=== PATIENT | male | born 1960 | race Caucasian/White ===

== ENCOUNTER 2018-08-16 15:35 | Outpatient (CLI) | payer OTHER, SELFPAY ==
[2018-08-16 17:54] LABS: Calculated LDL 115 mg/dL; Cholesterol 192 mg/dL (50-200); HDL Cholesterol 48 mg/dL (40-60); Triglyceride 149 mg/dL (30-150)
[2018-08-20 11:18] LABS: PSA, Screening 2.1 ng/ml (0-3.5)
== END 2018-08-16 15:55 ==
PROVIDERS: PCP Emergency Medicine; Visit Provider Emergency Medicine
DX: E66.3 Overweight (principal); Z12.5 Encounter for screening for malignant neoplasm of prostate
CPT/HCPCS: 80061; 83721; 84153

== ENCOUNTER 2019-09-13 07:38 | Outpatient (CLI) | payer OTHER, SELFPAY ==
[2019-09-14 18:07] LABS: COVID-19 RT-PCR Result NEGATIVE (Negative)
== END 2019-09-13 07:58 ==
PROVIDERS: PCP Emergency Medicine; Visit Provider Surgery
DX: Z11.59 Encounter for screening for other viral diseases (principal); Z01.818 Encounter for other preprocedural examination
CPT/HCPCS: U0003

== ENCOUNTER 2019-09-16 08:05 | Day surgery (SDC) | payer OTHER, SELFPAY ==
[2019-09-16] VITALS (8 sets, daily range): BP systolic 73–146; BP diastolic 49–107; PULSE 60–68; RESP 12–18; TEMP 36.1–36.7; O2SAT 95–98
[2019-09-16] MEDS: Gabapentin 300 MG CAP PO (08:43)
[2019-09-16] MEDS: Acetaminophen 500 MG TAB 1000 MG PO (08:43)
[2019-09-16] MEDS: Lactated Ringers 1,000 ML 100 ML IV ×2 (08:51→13:04)
[2019-09-16] MEDS: ceFAZolin 2 GM/50 ML BAG IVPB (10:59)
--- NOTE | 2019-09-16 11:10 | SKI_PTH ---
PATIENT: Joesph eSars LOC: [facility] U#:[id number] AGE/SX: 58/M ROOM: RE09/16/[address]: Tish Garcia : 1960 BED: DIS: 09/16/2019 SPEC #: [id number] RECD: 09/16/19 15:10 STATUS: NELI REQ #: [id number] RAÚL: 09/16/19 11:[address]: Tish Garcia DEPT: Surgical Specimen RECD BY: Camila Nick ENTERED: 09/16/19 15:11 SP TYPE: BAR RAMIREZ DR: Kvng Jansen DO Tissues: 1 - SKIN CYST/TAG/DEBRIDEMENT 2 - SKIN CYST/TAG/DEBRIDEMENT Procedures: GROSS AND MICRO LEVEL 3 Comments: [id number]
[2019-09-16] MEDS: Lidocaine 1% Multi-Dose 50 ML VIAL (11:28)
--- NOTE | 2019-09-16 12:37 | ROE_ITS ---
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 lg sebaceous cyst- 2 right frontal/scalp region POST-OP DIAGNOSIS: other excision chronic draining sinus/suture granuloma excision molly cyst PROCEDURE: excision chronic draining sinus/suture granuloma excision molly cyst SURGEON: Tish Porter ASSISTING SURGEON: Maddi Baron ANESTHESIA: MAC and local ESTIMATED BLOOD LOSS: 5 PATHOLOGY: other Patient was transported to: same day Findings: SURGEON: Tish Porter, DO ANESTHESIA: MAC. ESTIMATED BLOOD LOSS: Less than 5 mL. COMPLICATIONS: The patient tolerated the procedure well without complications. INDICATIONS: The pt had an umbilical hernia repaired approximately 10 years ago. Ever since then he has had a chronically open draining sinus at this number completely healed. Patient is here today for exploration and excision of this tract and for possible revision of the hernia and excision patent urachal cyst. Informed consent was obtained, explaining risks and benefits of the procedure including but not limited to bleeding, infection, pneumonia, blood clots, recurrence, chronic pain, and chronic numbness, reaction to mesh necessitating removal, complications of anesthesia and other unforetold complications. DESCRIPTION OF PROCEDURE: The patient was brought to the operating suite and placed in supine position. Anesthesia was administered per the Department of Anesthesia. Patient prepped and draped in the usual sterile fashion using DuraPrep scrub solution. IV antibiotics were administered. Pause for the cause was done. Healed incision is opened up. Electrocautery is used to provide he hemostasis. The sinus tract is traced down. The sinus tract is excised. Does and then a Prolene stitch. This is removed. The wound is then irrigated. Deep tissue was approximated with 3-0 Vicryl and skin was approximated with 4-0 Monocryl in a running subcuticular fashion. Skin glue and sterile dressings are applied. The forehead lesion is an attended to next. This is prepped and draped in usual sterile fashion using a Betadine scrub solution. Infiltrated 20 cc of quarter percent bicarb with epi. Small ellipse is made using a #15 blade and the cyst is dissected out. It is not grossly infected. It is about 2.5 x 2.5 inches. It is obviously a sebaceous cyst. The wound was then irrigated. Complex plastics closure in 2 layers is then carried out excising excess tissue to achieve a flat incision line and cosmetic repair just slightly above the hairline. I is closed with 3-0 Vicryl and 4-0 Monocryl running subcuticular fashion skin glue was applied. Patient tolerated procedures well without c omplication. He Was transferred to recovery room in stable condition The patient tolerated the procedure well without complications and was transferred to recovery room in stable condition. TISH PORTER, DO
--- NOTE | 2019-09-16 12:43 | PDOC.DSDIS_ITS ---
Discharge Plan Disposition Patient Disposition: HOME Condition: Good Discharge Details Reason For Visit: suture granuloma/ Attending Provider: Tish Garcia Primary Care Provider: Kvng Jansen Home Meds and New Rx's Prescriptions: New ibuprofen 600 mg tablet 600 mg PO Q6H PRNQty: 30 RF: 3 tramadol 50 mg tablet 50 mg PO Q6H PRNQty: 10 RF: 0 Continued sildenafil [Viagra] 100 mg tablet 100 mg PO DAILY Qty: 4 RF: 12 triamcinolone acetonide 15 GM cream 1 pietro Topical HS RF: 0 Discharge Instructions Additional Instructions: Caring for Your Incision You?ll need to help care for your incision after surgery and certain medical procedures. To close an incision, your healthcare provider used stitches (sutures), special strips of surgical tape called Steri-Strips, surgical fareed, or surgical skin glue. Follow the tips on this sheet to help stop bleeding, speed healing, and prevent infection of your incision. Pain Control Use ice! Ice keeps the swelling down and swelling is what causes pain. Never apply ice directly to the skin. Wrap it in a towel or cloth. Apply ice 20 minutes on and 20 minutes off for pain control. Use as needed. Take tylenol 325 mg by mouth with food every 4 hours as needed for pain. Or ibuprofen 600 mg by mouth with food every 6 hours as needed for pain. Do not take tylenol if you have a history of heavy drinking , hepatits C or liver problems. Do not take ibuprofen if you have a history of stomach ulcers/probl ems, bleeding problem or kidney issues. Types of incision closures ? Surgical stitches (sutures) are placed by sewing the edges of an incision together with surgical thread. Sutures are either absorbable or non-absorbable. Absorbable sutures break down in the body over time. Non-absorbable sutures need to be removed. ? Home care ? Always wash your hands before touching your incision. ? Keep the incision clean, dry, and out of water, keep the incision out of water. ? Do not to pick at the scabs. Scabs help protect the wound. ? You can take a shower in 24 hours and wash the incision with soap and water. Pat dry/don?t scrub. It?s OK to wash around the incision. But don?t spray water directly on it. ? Pat stitches dry if they get wet. Don't rub. ? Check the incision site daily for pain, redness, drainage, swelling, or separation of the incision edges. ? If there is a bandage (dressing) over the incision, change this every 24 hours as instructed by your provider. Using clean hands change the dressing as directed by your healthcare provider. Always wash your hands before changing your dressing. ? Make sure any clothing that touches the incision is loose-fitting. This will prevent rubbing. If the incision is on the head, keep your child from wearing caps or other head coverings. These may rub against the incision. ? Try to avoid from rough play, contact sports, or physical activities for two weeks. This can put you at risk of opening the incision. ? Make sure you avoid doing things that could cause dirt or sweat to get in or on the incision. As your incision heals, the skin may appear pink or red. It may also feel slightly bumpy or raised. This is called a healing ridge. Over time, the color should fade and the raised skin will become less noticeable. Care for specific closures : ? Sutures or fareed. Once you no longer need to keep these dry, clean the incision or wound daily, generally after the first 24 hours. First remove the bandage using clean hands. Then wash the area gently with soap and warm water. Use a wet cotton swab to loosen and remove any blood or crust that forms. After cleaning, put a thin layer of antibiotic ointment on. Then put on a new bandage. Follow-up care [place] or sutures generally need to be removed in 7-10 days. Be sure to return for suture or staple removal as directed. If dissolving stitches were used in your mouth, these will not need to be removed. They should fall out or dissolve on their own. If tape closures were used, remove them yourself when your healthcare provider tells you to if they have not fallen off on their own. When to seek medical care Call your healthcare provider right away if you have any of these: ? More pain, redness, swelling, bleeding, or foul-smelling discharge around the incision area ? Fever of 101?F (38.3?C) or higher, or as directed by your child's healthcare provider ? Shaking chills ? Vomiting or nausea that doesn?t go away ? Numbness, coldness, or tingling around the incision area, or changes in skin color ? Opening of the sutures or wound Stitches or fareed come apart or fall out or surgical tape falls off before 7 days, or as directed by your healthcare provider [facility] on Monday to make appt darline/ Dr. Garcia in 7-10 days. [phone] Activity:: no lifting over 5#'s or strenuous activity x 1week Remove Dressings/Wound Care:: 24 hours Shower/Bathe:: 24 hours Diet:: Small light meals x24 hours Discharge Orders Discharge Orders: Discharge Order (Routine); Ordered 09/16/19 Ordered By: Tish Garcia DS: Diagnosis Discharge Diagnosis (1) Sebaceous cyst: Status: Acute (2) Suture granuloma: Status: Acute
[2019-09-16] MEDS: Bacitracin 30 GM TUBE (14:33)
== END 2019-09-16 14:45 | disposition home or self-care (01) ==
PROVIDERS: PCP Emergency Medicine; Visit Provider Surgery
PROC: (CPT 11426; principal; 2019-09-16 10:00)
DX: L72.3 Sebaceous cyst (principal); L76.82 Other postprocedural complications of skin and subcutaneous tissue; Y83.8 Other surgical procedures as the cause of abnormal reaction of the patient, or of later complication, without mention of misadventure at the time of the procedure
CPT/HCPCS: 11426; 22902; 12032; 88304; J0690; J1100; J2001; J2250; J2370; J2405

== ENCOUNTER 2020-08-27 17:49 | Outpatient (REF) | payer OTHER, SELFPAY ==
[2020-08-31 09:13] LABS: PSA, Screening 3.8 ng/mL (0.0-4.5)
== END 2020-08-27 17:50 | disposition home or self-care (01) ==
LOC: LBN 17:49
PROVIDERS: PCP Emergency Medicine; Visit Provider Emergency Medicine
DX: Z12.5 Encounter for screening for malignant neoplasm of prostate (principal)
CPT/HCPCS: 84153

== ENCOUNTER 2021-01-05 03:05 | Outpatient (CLI) | payer MEDICAID, SELFPAY ==
[2021-01-05 22:52] LABS: PSA, Diagnostic 2.2 ng/mL (0.0-4.5)
== END 2021-01-05 03:06 | disposition home or self-care (01) ==
LOC: LBO 03:06
PROVIDERS: PCP Emergency Medicine; Visit Provider Emergency Medicine
DX: R97.20 Elevated prostate specific antigen [PSA] (principal)
CPT/HCPCS: 36415; 84153

== ENCOUNTER 2021-09-09 11:18 | Emergency (ER) | payer MEDICAID, SELFPAY ==
[2021-09-09 11:21] VITALS: BP 151/97; PULSE 66; RESP 18; TEMP 36.2; O2SAT 98
--- NOTE | 2021-09-09 11:30 | DI.RAD_ITS ---
Exam(s) XR FINGER RT LITTLE EXAM: XR FINGER RT LITTLE CLINICAL HISTORY: cut tip on pump tender blade, r/o fx. TECHNIQUE: 2D digital imaging was performed. Three views. COMPARISON: No exams were available for comparison FINDINGS: Gauze overlies the little finger. There is a soft tissue defect seen dorsally. There is no evidence of an acute fracture. There are degenerative changes at the interphalangeal joints. Advanced degen erative changes are also seen at the 1st carpal metacarpal joint IMPRESSION: Soft tissue defect. No evidence of acute fracture. DATA REPOSITORY: RADIATION DOSE DELIVERED:
--- NOTE | 2021-09-09 11:32 | ED.GENADUL_ITS ---
Discharge Plan Disposition Patient Disposition: HOME Condition: Stable Discharge Details Clinical Impression: Finger laceration Primary Care Provider: Rubin Garcia ED Provider: Keena Hanson Home Meds and New Rx's Prescriptions: New cephalexin 500 mg capsule 500 mg PO TID 3 Days Qty: 9 0RF Continued sildenafil [Viagra] 100 mg tablet 100 mg PO DAILY Qty: 4 12RF Discharge Instructions Instructions: Finger Laceration (ED) Additional Instructions: Keep dressing clean and dry. Cover the dressing if exposed to water or when showering. You may replace the dressing if it becomes contaminated or wet. A prescription for antibiotics has been sent electronically to your pharmacy. Call the orthopedics office today or tomorrow to schedule a follow-up appointment for reevaluation next week. Return immediately to the emergency department if you develop any worsening or new concerning symptoms. Referrals: Brenden Rendon MD [ [facility] STAFF PHYSICIAN] - Discharge Data Discharge Date/Time-TO BE ENTERED AT DEPARTURE: 09/09/21 13:30 Discharge Physician: Keena Hanson Medical Decision Making 50-year-old male presents with right fifth finger injury after caught in a lawnmower yesterday. Tetanus up-to-date. Patient has a 1 cm skin tear on the dorsal surface overlying the R 5th finger DIP and a macerated laceration to the distal aspect of his distal finger 3mm proximal to the cuticle. These lacerations are more superficial into the epidermis and do not appear amenable to suturing. His finger was soaked in saline and Hibiclens. X-ray read as negative per radiology. X-ray reviewed with Dr. Rendon who notes that there may be a small avulsion versus an ossicle. Recommend follow-up with orthopedics, antibiotics, Xeroform and finger splint to keep finger straight. Prescription for Keflex sent electronically to his pharmacy. Patient placed on orthopedic follow-up list for follow-up next week. Patient given dressings to go. Usual and customary return precautions given prior to discharge. Medical Records Medical records reviewed: Yes I reviewed the patient's medical records. Imaging Data Radiologic Study: Radiologist's impression: ?XR FINGER RT LITTLE CLINICAL HISTORY: ? 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 TECHNIQUE:? 2D digital imaging was performed.? Three views. COMPARISON:? No exams were available for comparison FINDINGS: Gauze overlies the little finger.? There is a soft tissue defect seen dorsally.? There is no evidence of an acute fracture.? There are degenerative changes at the interphalangeal joints.? Advanced degenerative changes are also seen at the 1st carpal metacarpal joint IMPRESSION: Soft tissue defect.? No evidence of acute fracture. HPI General Mode of arrival: ambulatory . Date/Time Provider Initiated Documentation: 09/09/21 11:32 . Limitations to Documentation: no limitations . Information obtained by: patient . HPI Narrative: Patient is a 60-year-old male who states he is ambidextrous but writes with his right hand presents with right fifth finger injury after caught in a lawnmower yesterday. Patient states he had pain overnight and the wound continued to bleed so he presented to [facility] who referred him here for further evaluation. Tetanus up-to-date 2020. Related Data Home Medications Medication Instructions Recorded Confirmed sildenafil 100 mg tablet (Viagra) 100 mg PO DAILY #4 tab-caps 08/27/20 09/09/21 cephalexin 500 mg capsule 500 mg PO TID 3 days #9 caps 09/09/21 Previous Rx's Medication Instructions Recorded sildenafil 100 mg tablet (Viagra) 100 mg PO DAILY #4 tab-caps 08/27/20 cephalexin 500 mg capsule 500 mg PO TID 3 days #9 caps 09/09/21 Allergies Allergy/AdvReac Type Severity Reaction Status Date / Time No Known Allergies Allergy Verified 09/09/21 11:23 General Stated Complaint: Laceration JOEY: 3 PFSH All Active Problems (Updated 09/09/21 @ 13:15 by Keena Hanson DO) Finger laceration (Acute) Overweight (Acute 04/15/15) Colonoscopy refused (Acute 07/22/16) Urachal sinus (Acute) Medical History (Updated 09/09/21 @ 13:15 by Keena Hanson DO) No significant past medical history Surgical History (Updated 09/16/19 @ 08:16 by Machelle Porras RN) History of hernia repair Family History Mother No problems noted. Father , 73 Diabetes Pancreatic cancer Brother , 64 Alcohol abuse Maternal Grandfather , 73 Diabetes Heart disease Paternal Grandfather , 89 No problems noted. Maternal Grandmother , 89 No problems noted. Paternal Grandmother , 90 No problems noted. Brother , 45 Substance abuse Social History (Updated 09/09/21 @ 14:20 by Emili Bustillo) Smoking/Tobacco Use Status: Never Second Hand Exposure: Yes Smoking risk assessment performed?: Yes Alcohol Intake: current Alcohol Intake frequency: a few times a week Alcohol type: beer Drug use: Never Substance use type: does not use Caregiver/Support person: No Household members: none Housing: house Communication Needs: None Do you need help understanding health information?: Rarely Pets and animals: Yes Pets and animals: dog(s) Sexually active: Yes Do you think of yourself as: straight/heterosexual Current gender identity: male What is your relationship status?: never How often do you talk on the phone with friends or family?: twice per week How often do you get together with friends or relatives?: twice per week Do you belong to any clubs or organized social groups?: no Panel score (0-1 are the most socially isolated patients): 1 What type of physical activity do you participate in: walking Duration: 30-45 minutes/day Frequency: 3-4 times per week Agree to transfusion: No Seatbelt use: sometimes Drive 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 1.5 cm jagged laceration extending from the dorsal surface of the distal finger 3mm proximal to the cuticle and extending on the ulnar aspect. 2. 1 cm superficial laceration on dorsal aspect near the DIP joint. Other: Motor/sensory grossly intact to right fifth finger. Course Vital Signs Vital signs: Vital Signs Temperature 97.2 F L 09/09/21 11:21 Pulse 66 09/09/21 11:21 Respiratory Rate 18 09/09/21 11:21 Blood Pressure 151/97 H 09/09/21 11:21 Pulse Oximetry 98 09/09/21 11:21 Temperature 97.2 F L 09/09/21 11:21 Temperature Source Temporal Artery Scan 09/09/21 11:21 Pulse 66 09/09/21 11:21 Respiratory Rate 18 09/09/21 11:21 Respiratory Effort Non-Labored 09/09/21 11:23 Blood Pressure 151/97 H 09/09/21 11:21 Blood Pressure Position Sitting 09/09/21 11:21 Pulse Oximetry 98 09/09/21 11:21 Oxygen Delivery Method Room Air 09/09/21 11:21 Oxygen Flow Rate 0 09/09/21 11:21 Procedures Orthopedic Splinting/Casting Injury #1: Side: right Upper Extremity Injury Location: finger (5th) Upper Extremity Immobilizer: aluminum form splint (finger splint) PAWSS Have you Been Recently Intoxicated or Drunk Within the Last 30 days?: No Have you Ever Experienced Previous Episodes of Alcohol Withdrawal?: No Have you ever Experienced Withdrawal Seizures?: No Have you ever Experienced Delirium Tremens(DT)s?: No Have you ever undergone Alcohol Rehabilitation Treatment (i.e, inpt ot outpatient treatment programs)?: No Have you ever Experienced Blackouts?: No Have you ever Combined Alcohol with other Downers within the last 90 days?: No Have you ever Combined Alcohol with any other Substance of Abuse during the last 90 days?: No Positive Blood Alcohol level on Presentation? [PCS.BAL]: No Evidence of Increased Autonomic Activity (i.e. HR>120, tremor, sweating, agitation, nausea)?: No Result: 0
[2021-09-09] MEDS: Cephalexin 500 MG CAP PO (12:58)
[2021-09-09 13:13] VITALS: BP 132/87; PULSE 70; TEMP 36.2; O2SAT 97
[2021-09-09 13:19] VITALS: BP 132/87; PULSE 70; RESP 16; TEMP 36.2; O2SAT 97
== END 2021-09-09 13:30 | disposition home or self-care (01) ==
PROVIDERS: Emergency Provider Physician Assistant; PCP Nurse Practitioner Family
DX: S61.216A Laceration without foreign body of right little finger without damage to nail, initial encounter (principal); Z77.22 Contact with and (suspected) exposure to environmental tobacco smoke (acute) (chronic); W23.0XXA Caught, crushed, jammed, or pinched between moving objects, initial encounter
CPT/HCPCS: 99283; 73140

== ENCOUNTER 2021-09-13 04:05 | Outpatient (CLI) | payer MEDICAID, SELFPAY ==
[2021-09-13 12:42] LABS: Calculated LDL 124 mg/dL (<100); Cholesterol 196 mg/dL (<200); HDL Cholesterol 58 mg/dL (40-60); Triglyceride 71 mg/dL (<150)
[2021-09-13 23:27] LABS: PSA, Screening 2.4 ng/mL (<=4.5)
== END 2021-09-13 04:06 | disposition home or self-care (01) ==
LOC: LOS 04:05
PROVIDERS: PCP Nurse Practitioner Family; Visit Provider Nurse Practitioner Family
DX: E66.3 Overweight (principal); Z12.5 Encounter for screening for malignant neoplasm of prostate
CPT/HCPCS: 36415; 80061; 84153

== ENCOUNTER 2021-11-26 09:22 | Emergency (ER) | payer MEDICAID, SELFPAY ==
--- NOTE | 2021-11-26 09:30 | DI.RAD_ITS ---
Exam(s) XR HAND LT COMPLETE EXAM: XR HAND LT COMPLETE CLINICAL HISTORY: hand vs saw. TECHNIQUE: 2D digital imaging was performed. COMPARISON: CR XR FINGER RT LITTLE from 09/09/2021 FINDINGS: 3 views No acute fractures identified. No osseous lesions. No erosions. Incidentally noted are advanced degenerative changes at the 1st carpometacarpal joint, this being the articulation between the thumb metacarpal and trapezium of the distal carpal row. IMPRESSION: No acute fracture evident. DATA REPOSITORY: RADIATION DOSE DELIVERED:
[2021-11-26 09:35] VITALS: BP 131/77; PULSE 80; RESP 18; TEMP 37; O2SAT 97
--- NOTE | 2021-11-26 10:08 | ED.GENADUL_ITS ---
Discharge Plan Disposition Patient Disposition: HOME Condition: Stable Discharge Details Clinical Impression: Laceration of hand, left Primary Care Provider: Rubin Garcia ED Provider: Jose Parker Home Meds and New Rx's Prescriptions: Continued sildenafil [Viagra] 100 mg tablet 100 mg PO DAILY Qty: 4 12RF Discharge Instructions Instructions: Laceration (ED) Additional Instructions: X-ray is unremarkable. Laceration was nearly 22 hours old and therefore we will loosely approximated the laceration with 4 sutures. Keep the laceration clean and dry, change antibiotic dressing daily. Rest, elevate, [id number] Tylenol and/or Motrin as directed for discomfort. Wear silvino taping and splint for the next 7-10 days to avoid reopening of the wound. Your tetanus status is up-to-date. Sutures should be removed in 10 days. Please watch for new or worsening symptoms and return to the ER for any concerns. Medical Decision Making This is a 61-year-old gentleman, [id number], tetanus status up-to-date. He appears today for a left hand laceration that he sustained yesterday on a band saw. Plan is to obtain x-ray and the laceration will need to be thoroughly cleaned and loosely approximated. We will choose to loosely approximate given the laceration is wide open but is nearly 24 hours old. Hand was soaked in water and Betadine and then thoroughly irrigated and scrubbed with Hibiclens. Please see procedural note for approximation. Then the wound had an antibiotic dressing applied, fourth and fifth digits were silvino tape and a volar AlumaFoam splint was applied Standard discharge and return precautions were provided. Patient understands, is agreeable to this plan, and has no additional questions or concerns upon discharge. This documentation was generated using [employer] system, please disregard any oddities of phrase or misspellings. Medical Records Medical records reviewed: Yes I reviewed the patient's medical records. Imaging Data Radiologic Study: Attestation: I personally reviewed and interpreted this imaging study as follows: Imaging: X-Ray Radiologist's impression: This report is currently processing and HAS NOT BEEN OFFICIALLY SIGNED BY THE PHYSICIAN - ESTIMATED TIME OF APPROVAL IS 11/26/2021 10:10. Exam(s) XR HAND LT COMPLETE EXAM: XR HAND LT COMPLETE CLINICAL HISTORY: hand vs saw. TECHNIQUE: 2D digital imaging was performed. COMPARISON: CR XR FINGER RT LITTLE from 09/09/2021 FINDINGS: 3 views No acute fractures identified. No osseous lesions. No erosions. Incidentally noted are advanced degenerative changes at the 1st carpometacarpal joint, this being the articulation between the thumb metacarpal and trapezium of the distal carpal row. IMPRESSION: No acute fracture evident. HPI General Mode of arrival: ambulatory . Date/Time Provider Initiated Documentation: 11/26/21 09:38 . Limitations to Documentation: no limitations . Information obtained by: patient . History of Present Illness 61 year old M presents to the emergency department with the chief complaint of L hand lac, described as mild, with intensity rated at 3. Quality is described as aching, and is localized to the left and upper extremity. Patient reports no radiation. Patient started experiencing this hour(s) (22) and it has been constant. No relieving factors improve symptom(s), Movement worsens symptoms . Patient notes no other symptoms.. Patient did receive the following treatments prior to arrival, none Related Data Home Medications Medication Instructions Recorded Confirmed sildenafil 100 mg tablet (Viagra) 100 mg PO DAILY #4 tab-caps 08/27/20 11/26/21 Previous Rx's Medication Instructions Recorded sildenafil 100 mg tablet (Viagra) 100 mg PO DAILY #4 tab-caps 08/27/20 Allergies Allergy/AdvReac Type Severity Reaction Status Date / Time No Known Allergies Allergy Verified 09/22/21 08:02 General Stated Complaint: Laceration JOEY: 4 Review of Systems Constitutional Constitutional: Denies fever(s) and Denies weakness Musculoskeletal Musculoskeletal: Denies arthralgias, Denies numbness, Denies stiffness and Denies tingling Integumentary/Breasts Skin/Breast: Denies erythema Neurologic Neurologic: Denies numbness, Denies tingling and Denies weakness PFS All Active Problems (Updated 11/26/21 @ 11:20 by ALBINO Cuevas) Laceration of hand, left (Acute) Overweight (Acute 04/15/15) Colonoscopy refused (Acute 07/22/16) Urachal sinus (Acute) Medical History No significant past medical history Surgical History History of hernia repair Family History Mother No problems noted. Father , 73 Diabetes Pancreatic cancer Brother , 64 Alcohol abuse Maternal Grandfather , 73 Diabetes Heart disease Paternal Grandfather , 89 No problems noted. Maternal Grandmother , 89 No problems noted. Paternal Grandmother , 90 No problems noted. Brother , 45 Substance abuse Social History Smoking/Tobacco Use Status: Never Second Hand Exposure: Yes Smoking risk assessment performed?: Yes Alcohol Intake: current Alcohol Intake frequency: a few times a week Alcohol type: beer Drug use: Never Substance use type: does not use Caregiver/Support person: No Household members: none Housing: house Communication Needs: None Do you need help understanding health information?: Rarely Pets and animals: Yes Pets and animals: dog(s) Sexually active: Yes Do you think of yourself as: straight/heterosexual Current gender identity: male What is your relationship status?: never How often do you talk on the phone with friends or family?: twice per week How often do you get together with friends or relatives?: twice per week Do you belong to any clubs or organized social groups?: no Panel score (0-1 are the most socially isolated patients): 1 What type of physical activity do you participate in: walking Duration: 30-45 minutes/day Frequency: 3-4 times per week Agree to transfusion: No Seatbelt use: sometimes 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 Do you feel safe at home: Yes Do you feel safe in your relationship?: Yes Exam Const General: cooperative, healthy appearing, comfortable and no acute distress Orientation: alert and awake [facility] Head: normal to inspection, normocephalic and atraumatic Eyes Conjunctivae: conjunctivae normal Neck Neck: normal visual inspection, full ROM, trachea midline and supple Resp Effort & Inspection: normal respiratory effort and able to speak in complete sentences Cardio Rate: regular rate Rhythm: regular rhythm Skin General skin exam: no rashes or lesions noted Neuro General: patient alert, patient awake, moves all extremities and no focal motor deficits Cognition: normal cognition Speech: speech normal Gait: normal gait Motor: muscle tone normal throughout Sensory Exam: no sensory deficits noted Extrem General: full ROM and capillary refill normal Other: There is an irregular, open, 6.5 cm laceration through the webbing between the fourth and fifth digits. Neuro, vascular, tendon intact. No obvious foreign body or bony involvement. No deformity. Diffuse mild discomfort. 5 out of 5 strength. Psych Appearance: grossly normal Mental Status: mental status grossly normal Course Vital Signs Vital signs: Vital Signs Temperature 37 C 11/26/21 09:35 Pulse 80 11/26/21 09:35 Respiratory Rate 18 11/26/21 09:35 Blood Pressure 131/77 11/26/21 09:35 Pulse Oximetry 97 11/26/21 09:35 Temperature 37 C 11/26/21 09:35 Temperature Source Temporal Artery Scan 11/26/21 09:35 Pulse 80 11/26/21 09:35 Respiratory Rate 18 11/26/21 09:35 Respiratory Effort Non-Labored 11/26/21 09:42 Blood Pressure 131/77 11/26/21 09:35 Blood Pressure Position Sitting 11/26/21 09:35 Pulse Oximetry 97 11/26/21 09:35 Oxygen Delivery Method Room Air 11/26/21 09:35 Oxygen Flow Rate 0 11/26/21 09:35 Procedures Laceration Laceration 1: Site: hand Side (If applicable): left Size (cm): 6.5 Description: irregular Depth: simple, single layer Local Anesthetic: Lidocaine 2%, Bupivicaine 0.5% and other anesthetic ([id number] mixture) Amount of anesthesia used (mL): 9 Pre-repair: wound explored, irrigated extensively and deep structures intact Skin layer closed with: nylon Size (cm): 4-0 Number of sutures: 4 Technique: simple, interrupted (Loose approximation)
[2021-11-26] MEDS: Bupivacaine 0.5% Pres-Free 30 ML VIAL (10:20)
[2021-11-26] MEDS: Povidone-Iodine Soln. 118 ML BTL (10:29)
[2021-11-26] MEDS: Bacitracin 1 PACKET (11:16)
== END 2021-11-26 11:35 | disposition home or self-care (01) ==
PROVIDERS: Emergency Provider Physician Assistant; PCP Nurse Practitioner Family
DX: S61.412A Laceration without foreign body of left hand, initial encounter (principal); W31.2XXA Contact with powered woodworking and forming machines, initial encounter
CPT/HCPCS: 12002; 99283; 73130; 99282

== ENCOUNTER 2021-12-08 15:35 | Emergency (ER) | payer MEDICAID, SELFPAY ==
[2021-12-08 15:40] VITALS: BP 117/79; PULSE 80; RESP 18; TEMP 37; O2SAT 98
--- NOTE | 2021-12-08 15:43 | ED.GENADUL_ITS ---
Discharge Plan Disposition Patient Disposition: HOME Condition: Good Discharge Details Clinical Impression: Encounter for removal of sutures Primary Care Provider: Rubin Garcia ED Provider: Krishna Eller Home Meds and New Rx's Prescriptions: No Action sildenafil [Viagra] 100 mg tablet 100 mg PO DAILY Qty: 4 12RF Discharge Instructions Instructions: Stitches Removal (ED) Additional Instructions: Please return for any signs of infection otherwise keep wound clean and dry. Given that wound is still partially opened it may take another 2 to 3 weeks for full healing to occur. Referrals: Rubin Garcia, RESEARCH AND DEVELOPMENT DIRECTOR [Primary Care Provider] - Discharge Data Discharge Date/Time-TO BE ENTERED AT DEPARTURE: 12/08/21 15:51 Medical Decision Making Patient presenting to the emergency department for need of suture removal. Patient states no complications. He does state that 2 of the sutures fell out on their own. Evaluation of the wound does show that wound is still very loosely approximated but is starting to heal well via secondary intention. Discussed with patient to continue to keep wound clean and dry and to monitor for signs of infection otherwise I do feel that removal of the remaining sutures that are necessary applying very little approximation at this time are a ppropriate to be removed. staff accountant remove remaining sutures and patient was discharged. HPI General Mode of arrival: ambulatory . Date/Time Provider Initiated Documentation: 12/08/21 15:39 . Limitations to Documentation: no limitations . Information obtained by: patient, RN notes reviewed and old records reviewed . History of Present Illness 61 year old M presents to the emergency department with the chief complaint of Suture removal, Patient notes no other symptoms.. Related Data Home Medications Medication Instructions Recorded Confirmed sildenafil 100 mg tablet (Viagra) 100 mg PO DAILY #4 tab-caps 08/27/20 11/26/21 Previous Rx's Medication Instructions Recorded sildenafil 100 mg tablet (Viagra) 100 mg PO DAILY #4 tab-caps 08/27/20 Allergies Allergy/AdvReac Type Severity Reaction Status Date / Time No Known Allergies Allergy Verified 09/22/21 08:02 General Stated Complaint: Recheck JOEY: 4 Review of Systems Narrative: 6 systems reviewed and unremarkable except what is marked below. Constitutional Constitutional: Denies chills and Denies fever(s) Musculoskeletal Musculoskeletal: Denies arthralgias Integumentary/Breasts Skin/Breast: Reports as per HPI PFSH All Active Problems (Updated 12/08/21 @ 15:47 by Krishna Eller NP) Laceration of hand, left (Acute) Encounter for removal of sutures (Acute) Overweight (Acute 04/15/15) Colonoscopy refused (Acute 07/22/16) Urachal sinus (Acute) Medical History No significant past medical history Surgical History History of hernia repair Family History Mother No problems noted. Father , 73 Diabetes Pancreatic cancer Brother , 64 Alcohol abuse Maternal Grandfather , 73 Diabetes Heart disease Paternal Grandfather , 89 No problems noted. Maternal Grandmother , 89 No problems noted. Paternal Grandmother , 90 No problems noted. Brother , 45 Substance abuse Social History Smoking/Tobacco Use Status: Never Second Hand Exposure: Yes Smoking risk assessment performed?: Yes Alcohol Intake: current Alcohol Intake frequency: a few times a week Alcohol type: beer Drug use: Never Substance use type: does not use Caregiver/Support person: No Household members: none Housing: house Communication Needs: None Do you need help understanding health information?: Rarely Pets and animals: Yes Pets and animals: dog(s) Sexually active: Yes Do you think of yourself as: straight/heterosexual Current gender identity: male What is your relationship status?: never How often do you talk on the phone with friends or family?: twice per week How often do you get together with friends or relatives?: twice per week Do you belong to any clubs or organized social groups?: no Panel score (0-1 are the most socially isolated patients): 1 What type of physical activity do you participate in: walking Duration: 30-45 minutes/day Frequency: 3-4 times per week Agree to transfusion: No Seatbelt use: sometimes 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
== END 2021-12-08 15:51 | disposition home or self-care (01) ==
LOC: ER 15:58
PROVIDERS: Emergency Provider Nurse Practitioner Family; PCP Nurse Practitioner Family
DX: S61.412D Laceration without foreign body of left hand, subsequent encounter (principal); X58.XXXD Exposure to other specified factors, subsequent encounter; Z48.02 Encounter for removal of sutures

== ENCOUNTER 2022-01-20 13:13 | Outpatient (CLI) | payer MEDICAID, SELFPAY ==
--- NOTE | 2022-01-20 13:00 | RT.EKG_ITS ---
APPROVED REPORT Exam: Resting ECG Reason for Exam: Passed out Patient Location: O HR:93 bpm ECG Measurements Heart Rate 93 AXIS NJ 171 P 21 QRSd 91 QRS 53 QT 345 T 6 QTc 430 Conclusion Sinus rhythm...normal P axis, V-rate 50- 99 Normal Electrocardiogram
== END 2022-01-20 13:14 | disposition home or self-care (01) ==
LOC: DI.CM 13:14
PROVIDERS: PCP Nurse Practitioner Family; Visit Provider Nurse Practitioner Family
DX: R55 Syncope and collapse (principal)
CPT/HCPCS: 93010

== ENCOUNTER 2022-01-20 14:02 | Emergency (ER) | payer OTHER, MEDICAID, SELFPAY ==
[2022-01-20] VITALS (45 sets, daily range): BP systolic 122–155; BP diastolic 76–100; PULSE 66–91; RESP 11–26; TEMP 36.7–36.9; O2SAT 93–97
--- NOTE | 2022-01-20 14:00 | RT.EKG_ITS ---
APPROVED REPORT Exam: Resting ECG Reason for Exam: syncope Patient Location: E HR:84 bpm ECG Measurements Heart Rate 84 AXIS FL 174 P 43 QRSd 88 QRS 29 QT 345 T 41 QTc 409 Conclusion Sinus rhythm...normal P axis, V-rate 60- 99
[2022-01-20 15:51] LABS: Abs Immature Grans 0.03 10^3/uL (0.0-0.06); Absolute Basophil Count 0.03 10^3/uL (0.0-0.2); Absolute Eosinophil Count 0.05 10^3/uL (0.0-0.7); Absolute Lymphocyte Count 1.65 10^3/uL (1.2-3.4); Absolute Monocyte Count 0.53 10^3/uL (0.1-0.8); Absolute Neutrophil Count 5.37 10^3/uL (1.2-6.7); Basophils % 0.4; Eosinophils % 0.7; HGB 16.9 g/dL (13.5-17.5); Immature Grans % 0.4; Lymphocytes % 21.5; MCH 30.2 pg (27.0-33.0); MCHC 35.2 % (32.0-36.0); MCV 86 fL (80-95); MPV 9.8 fL (8.0-11.0); Monocytes % 6.9; Neutrophils % 70.1; Platelet Count 248 10^3/uL (130-400); RDW 11.9 % (11.8-14.1); RDW-SD 37.2 fL; WBC 7.66 10^3/uL (4.4-10.8)
[2022-01-20 16:06] LABS: ALT 22 U/L (16-63); AST 24 U/L (15-37); Alkaline Phosphatase 81 U/L (46-116); BUN 20 mg/dL (7-18); Bilirubin, Total 0.3 mg/dL (0.2-1.0); CREATININE 1.1 mg/dL (0.70-1.30); Calcium 9.3 mg/dL (8.5-10.1); Chloride 100 mmol/L (98-107); Estimated GFR 75.43 (mL/min/1.73m2); Glucose 129 mg/dL (74-106); Magnesium 2.3 mg/dL (1.8-2.4); Potassium 4.1 mmol/L (3.5-5.1); Sodium 136 mmol/L (136-145); Total Protein 7.8 g/dL (6.4-8.2); Troponin I < 50 ng/L (<or=60)
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
== END 2022-01-20 18:37 | disposition home or self-care (01) ==
PROVIDERS: Emergency Provider Student in an Organized Health Care Education/Training Program; PCP Nurse Practitioner Family
DX: R55 Syncope and collapse (principal)
CPT/HCPCS: 80053; 93005; 99283; 83735; 84484; 85025; 93010; 99282

== ENCOUNTER 2022-02-08 08:56 | Outpatient (RCR) | payer MEDICAID, SELFPAY ==
--- NOTE | 2022-02-08 09:00 | HOLTER_ITS ---
APPROVED REPORT Conclusion This is a 48-hour Holter monitor ordered for syncope Rhythm throughout was sinus with an average heart rate of 82. Minimum was 56, maximum 134 There were very rare isolated atrial and ventricular ectopic beats There was no atrial fibrillation, no SVT, no pauses greater than 3 seconds, no high-grade AV block No patient symptoms were reported
== END 2022-03-08 23:59 | disposition home or self-care (01) ==
LOC: CARDOPNVT 08:56
PROVIDERS: PCP Nurse Practitioner Family; Visit Provider Student in an Organized Health Care Education/Training Program
DX: R55 Syncope and collapse (principal)
CPT/HCPCS: 93225; 93226

== ENCOUNTER 2022-06-08 07:36 | Emergency (ER) | payer MEDICAID, SELFPAY ==
[2022-06-08 07:42] VITALS: BP 139/94; PULSE 115; RESP 18; TEMP 36.4; O2SAT 95
--- NOTE | 2022-06-08 07:59 | W.ED.GENAD ---
Discharge Plan Disposition Patient Disposition: Home Condition: Stable Discharge Details Clinical Impression: Pain and swelling of left knee, Sprain of left knee Primary Care Provider: Rubin Garcia ED Provider: Keena Hanson Home Meds and New Rx's Prescriptions: New ibuprofen 600 mg tablet 600 mg PO Q6H PRNQty: 20 0RF Continued sildenafil [Viagra] 100 mg tablet 100 mg PO DAILY Qty: 4 12RF Hold Instructions: Resume on 02/16/22. hold until cleared Discharge Instructions Instructions: Swollen Knee Joint (ED), Knee Pain (ED), Joint Aspiration (DC) Additional Instructions: Your left knee joint fluid has been sent to the lab for analysis. You will be contacted with any positive results. Rest, ice, and elevate the affected area as much as possible. A prescription for ibuprofen has been sent electronically to your pharmacy to take as directed. You should take 600 mg of ibuprofen every 6 hours for the next 2 to 3 days. You can take an [id number] Pepcid or Prilosec to help protect your stomach while taking NSAIDs as long-term use of NSAIDs can increase risk of gastrointestinal bleeding and ulcers. You have been placed on orthopedic follow-up list for further evaluation. Follow-up with your primary care doctor in 1 week. Return to the emergency department with any worsening or new concerning symptoms. Referrals: Brenden Rendon MD [ [facility] STAFF PHYSICIAN] - Discharge Data Discharge Date/Time-TO BE ENTERED AT DEPARTURE: 06/08/22 09:35 Discharge Physician: Keena Hanson Medical Decision Making 61-year-old male presents with left knee pain and swelling for the past 2 days. Reports he had gotten into an awkward position to twist and a light bulb earlier in the day prior to onset of left knee pain. Denies any blunt injury, fever or redness of the left knee. Heart rate 115 on arrival, recheck heart rate within normal limits. He is afebrile and otherwise appears nontoxic. He has mild to moderate suprapatellar edema to the left knee. There is no obvious ligamentous laxity or evidence or overlying cellulitis. He is able to bend the knee with passive and active range of motion with some pain but able to tolerate. He is neurovascular intact. He has no left calf tenderness. He has no fever, warmth, signs of cellulitis or significant loss of range of motion to septic arthritis. Suspect left knee joint inflammation in setting of sprain vs arthritis vs gout. Will refer for x-ray, give a dose of ibuprofen and attempt joint arthrocentesis for fluid analysis. Able to obtain only 5 cc of joint fluid upon aspiration. The fluid was yellow and mostly clear but a tinge cloudy. No blood. Fluid sent for analysis. Kenalog 10 was injected within the joint after aspiration. Patient placed on orthopedic follow-up list. Tristin wrap placed to the left knee. Advised to continue to monitor for signs of infection. Usual and customary return precautions given prior to discharge. Medical Records Medical records reviewed: Yes I reviewed the patient's medical records. Imaging Data Radiologic Study: Radiologist's impression: XR KNEE LT 4V AP,LAT,EDDI,PAT CLINICAL HISTORY: ? left knee pain/swelling, r/o fx/effusion/arthritis.? TECHNIQUE:? 2D digital imaging was performed of the left knee.? Four images were obtained.? Merchant,AP, lateral and PA tunnel? views were obtained. COMPARISON:? No exams were available for comparison FINDINGS: BONES:? No acute fracture is present. No bony destructive lesion is seen. JOINTS: The knee is normally aligned. No joint effusion is seen. There is calcifications seen in the femoral tibial joint which can be seen with CPPD arthropathy. SOFT TISSUE: Atherosclerosis is present.? IMPRESSION: No acute fracture or dislocation.? HPI General Mode of arrival: ambulatory. Date/Time Provider Initiated Documentation: 06/08/22 07:45. Limitations to Documentation: no limitations. Information obtained by: patient. HPI Narrative: Patient is a 61-year-old male who presents with left knee pain and swelling for the past 2 days. Patient states he awoke in the middle the night a day and a half ago with left knee pain. He states he thought he needed some exercise so he went for a 1-1/2 mile walk but states this made the left knee pain worse. He states since then he is having more difficulty weightbearing, walking or bending his left knee. He took an aspirin last night without significant relief. He denies any left hip or ankle pain. He denies any left calf pain. He denies any fever. He states he thinks he may have injured his knee when he was trying to screw and a light bulb in an awkward place 3 days ago and states he had to stretch and twist his legs to do it. He denies any direct fall onto his left knee. He denies any history of left knee surgery. Related Data Home Medications Medication Instructions Recorded Confirmed sildenafil 100 mg tablet (Viagra) 100 mg PO DAILY #4 tab-caps 01/20/22 06/08/22 ibuprofen 600 mg tablet 600 mg PO Q6H PRN #20 tabs 06/08/22 Previous Rx's Medication Instructions Recorded sildenafil 100 mg tablet (Viagra) 100 mg PO DAILY #4 tab-caps 01/20/22 ibuprofen 600 mg tablet 600 mg PO Q6H PRN #20 tabs 06/08/22 Allergies Allergy/AdvReac Type Severity Reaction Status Date / Time No Known Allergies Allergy Verified 06/08/22 07:43 General Stated Complaint: Orthopedic JOEY: 4 Review of Systems All systems reviewed & are unremarkable except as noted in HPI and below Constitutional Constitutional: Reports as per HPI, Denies chills and Denies fever(s) Eyes Eyes: Denies blurry vision ENT Ears, Nose, Mouth, and Throat: Denies dizziness, Denies sore throat and Denies throat swelling Cardiovascular Cardiovascular: Denies chest pain and Denies dyspnea Respiratory Respiratory: Denies cough and Denies dyspnea Gastrointestinal Gastrointestinal: Denies abdominal pain, Denies diarrhea and Denies vomiting Genitourinary Genitourinary: Denies hematuria and Denies dysuria Musculoskeletal Musculoskeletal: Denies back pain and Denies numbness Comments: left knee pain and swelling Integumentary/Breasts Skin/Breast: Denies lesions and Denies rash Neurologic Neurologic: Denies dizziness, Denies localized weakness and Denies numbness Allergic/Immunologic Allergic/Immunologic: Denies throat swelling PFSH All Active Problems (Updated 06/11/22 @ 14:04 by Keena Hanson DO) Pain and swelling of left knee (Acute) Sprain of left knee (Acute) 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 Overweight (Acute 04/15/15) Colonoscopy refused (Acute 07/22/16) Urachal sinus (Acute) Medical History No significant past medical history Surgical History History of hernia repair Family History Mother No problems noted. Father , 73 Diabetes Pancreatic cancer Brother , 64 Alcohol abuse Maternal Grandfather , 73 Diabetes Heart disease Paternal Grandfather , 89 No problems noted. Maternal Grandmother , 89 No problems noted. Paternal Grandmother , 90 No problems noted. Brother , 45 Substance abuse Social History Smoking/Tobacco Use Status: Never Second Hand Exposure: Yes Smoking risk assessment performed?: Yes Alcohol Intake: current Alcohol Intake frequency: a few times a week Alcohol type: beer Drug use: Never Substance use type: does not use Caregiver/Support person: No Household members: none Housing: house Communication Needs: None Do you need help understanding health information?: Rarely Pets and animals: Yes Pets and animals: dog(s) Sexually active: Yes Do you think of yourself as: straight/heterosexual Current gender identity: male What is your relationship status?: never How often do you talk on the phone with friends or family?: twice per week How often do you get together with friends or relatives?: twice per week Do you belong to any clubs or organized social groups?: no Panel score (0-1 are the most socially isolated patients): 1 What type of physical activity do you participate in: walking Duration: 30-45 minutes/day Frequency: 3-4 times per week Agree to transfusion: No Seatbelt use: sometimes Drive intox or ride w/intox oil transport driver: No Do you feel safe at home: Yes Do you feel safe in your relationship?: Yes Exam Const General: cooperative, healthy appearing and no acute distress Orientation: alert, awake and oriented x3 HENMT Head: normal to inspection Mouth: oral mucosae normal Eyes General: appearance normal, both eyes and all related structures Neck Neck: normal visual inspection Resp Effort & Inspection: normal respiratory effort and able to speak in complete sentences Cardio Rate: regular rate Skin General skin exam: no rashes or lesions noted Neuro General: patient alert, patient awake and patient oriented x3 Motor: muscle tone normal throughout Extrem Other: There is mild to moderate edema noted suprapatellar left knee. He has no significant reproducible pain with valgus or varus stress. Negative anterior and posterior drawer test. Negative Natasha's test. There is no overlying erythema, crepitus, ecchymosis, rash or lesions. No left calf tenderness. Left DP/PT pulses intact. Psych Appearance: grossly normal Affect: normal affect Course Vital Signs Vital signs: Vital Signs Temperature 97.5 F L 06/08/22 07:42 Pulse 115 H 06/08/22 07:42 Respiratory Rate 18 06/08/22 07:42 Blood Pressure 139/94 H 06/08/22 07:42 Pulse Oximetry 95 06/08/22 07:42 Temperature 97.5 F L 06/08/22 07:42 Temperature Source Oral 06/08/22 07:42 Pulse 115 H 06/08/22 07:42 Respiratory Rate 18 06/08/22 07:42 Respiratory Effort Normal, Non-Labored 06/08/22 07:43 Blood Pressure 139/94 H 06/08/22 07:42 Pulse Oximetry 95 06/08/22 07:42 Oxygen Delivery Method Room Air 06/08/22 07:42 Oxygen Flow Rate 0 06/08/22 07:42 Procedures Joint Aspiration/Injection Joint Asp./Inject. 1: Time Out Performed: Yes Side of body: left Joint Aspirated: knee Ultrasound Guidance: No Skin Prep: Chlorhexidene Needle Size Used: 18G Fluid Obtained: clear (minimally cloudy) Total fluid obtained (mL): 5 Medication Injected, if any: Triamcinolone Acetate Amount of Medication Injected (mls): 5 Patient Tolerated Procedure: well Complications: none
--- NOTE | 2022-06-08 08:00 | DI.RAD_ITS ---
Exam(s) XR KNEE LT 4V AP,LAT,EDDI,PAT EXAM: XR KNEE LT 4V AP,LAT,EDDI,PAT CLINICAL HISTORY: left knee pain/swelling, r/o fx/effusion/arthritis. TECHNIQUE: 2D digital imaging was performed of the left knee. Four images were obtained. Merchant, AP, lateral and PA tunnel views were obtained. COMPARISON: No exams were available for comparison FINDINGS: BONES: No acute fracture is present. No bony destructive lesion is seen. JOINTS: The knee is normally aligned. No joint effusion is seen. There is calcifications seen in the femoral tibial joint which can be seen with CPPD arthropathy. SOFT TISSUE: Atherosclerosis is present. IMPRESSION: No acute fracture or dislocation. DATA REPOSITORY: RADIATION DOSE DELIVERED:
[2022-06-08] MEDS: Ibuprofen 600 MG TAB PO (08:37)
[2022-06-08 09:35] VITALS: BP 132/87; PULSE 98; RESP 18; O2SAT 96
[2022-06-08 10:26] LABS: Clarity Cloudy; Nucleated Cells 50700 uL (0)
[2022-06-08 10:33] LABS: Polynuclear Cells 97 %
[2022-06-08 10:34] LABS: Crystals (BF) No Crystals seen; Mononuclear Cells 3 %
== END 2022-06-08 09:35 | disposition home or self-care (01) ==
PROVIDERS: Emergency Provider Physician Assistant; PCP Nurse Practitioner Family
DX: S83.92XA Sprain of unspecified site of left knee, initial encounter (principal); X58.XXXA Exposure to other specified factors, initial encounter
CPT/HCPCS: 20610; 99283; 73564; 87070; 87205; 89051; 89060

== ENCOUNTER 2023-09-18 14:15 | Outpatient (CLI) | payer MEDICAID, SELFPAY ==
[2023-09-18 10:07] LABS: Hemoglobin A1C 5.8 % (<5.7)
[2023-09-18 14:44] LABS: Calculated LDL 136 mg/dL (<100); Cholesterol 212 mg/dL (<200); HDL Cholesterol 59 mg/dL (40-60); Triglyceride 86 mg/dL (<150)
== END 2023-09-18 14:16 | disposition home or self-care (01) ==
LOC: LBO 14:15
PROVIDERS: PCP Nurse Practitioner Family; Visit Provider Nurse Practitioner Family
DX: Z13.220 Encounter for screening for lipoid disorders (principal); Z13.1 Encounter for screening for diabetes mellitus; R55 Syncope and collapse; I10 Essential (primary) hypertension; Z00.00 Encounter for general adult medical examination without abnormal findings
CPT/HCPCS: 36415; 80061; 83036

== ENCOUNTER 2024-09-20 00:50 | Outpatient (CLI) | payer MEDICARE, OTHER, SELFPAY ==
[2024-09-20 12:57] LABS: Hemoglobin A1C 5.6 % (<5.7)
[2024-09-20 13:23] LABS: Calculated LDL 99 mg/dL (<100); Cholesterol 169 mg/dL (<200); HDL Cholesterol 52 mg/dL (>or=40); Triglyceride 92 mg/dL (<150)
[2024-09-20 18:30] LABS: PSA, Screening 2.4 ng/mL (<=4.5)
== END 2024-09-20 00:51 | disposition home or self-care (01) ==
LOC: LOS 00:50
PROVIDERS: PCP Nurse Practitioner Family; Visit Provider Nurse Practitioner Family
DX: Z12.5 Encounter for screening for malignant neoplasm of prostate (principal); Z13.6 Encounter for screening for cardiovascular disorders; Z13.1 Encounter for screening for diabetes mellitus
CPT/HCPCS: 36415; 80061; 84153; 83036